=== PATIENT | female | born 1990 | race Caucasian/White ===

== ENCOUNTER 2019-10-11 14:00 | Emergency (ER) | payer BC ==
[~2019-10-11] VITALS: Ht 154.9 cm; Wt 80.9 kg
[2019-10-11] MEDS ORDERED: predniSONE 20 MG TABLET PO ONE (15:30)
[2019-10-11] MEDS ORDERED: ALBU2.5V5 NEB (15:39)
--- NOTE | 2019-10-11 15:39 | PHYS DOC ---
Past Medical History Past Medical History: Asthma Past Surgical History: No Surgical History Smoking Status: Current Every Day Smoker Alcohol Use: None Adult General Chief Complaint Chief Complaint: ASTHMA HPI HPI Patient is a 29 year old female who presents with dyspnea. Patient states she has a history of asthma, has had some increased wheezing over the last 2 days, after she exposed to some dust from [place] boxes at work. States she is trying to save her inhaler to use at work, as she does not have refills for this, however she been using her nebulizers at home with seem to help, but she is now out of them. States she has a prescription for her Symbicort however she has not been able to fill it, she will fill this tomorrow when her pharmacy opens. States no recent fever, no recent illness, no exposure to other ill persons. States she is just had concern over her asthma being a little worse recently Review of Systems Review of Systems Constitutional: Denies fever or chills [] HENT: Denies nasal congestion or sore throat [] Respiratory: Reports cough, denies shortness of breath, however does state her asthma feels like it is a little bit worse over the last couple days Cardiovascular: No additional information not addressed in HPI [] GI: Denies abdominal pain, nausea, vomiting, bloody stools or diarrhea [] : Denies dysuria or hematuria [] Musculoskeletal: Denies back pain or joint pain [] Integument: Denies rash or skin lesions [] Neurologic: Denies headache, focal weakness or sensory changes [] Endocrine: Denies polyuria or polydipsia [] All other systems were reviewed and found to be within normal limits, except as documented in this note. Allergies Allergies Allergies Coded Allergies Type Severity Reaction Last Updated Verified No Known Drug Allergies 10/11/19 No Physical Exam Physical Exam Constitutional: Well developed, well nourished, no acute distress, non-toxic appearance. [] HENT: Normocephalic, atraumatic, oropharynx moist, no oral exudates, nose normal. [] Cardiovascular:Heart rate regular rhythm, no murmur [] Lungs & Thorax: Faint wheezes noted to upper lobes, no wheezes noted to lower lobes. Patient conversational, able speak in multiple word sentences with no noted air hunger [] Abdomen: Bowel sounds normal, soft, no tenderness, no masses, no pulsatile masses. [] Skin: Warm, dry, no erythema, no rash. [] Extremities: No tenderness, no cyanosis, no clubbing, ROM intact, no edema. [] Neurologic: Alert and oriented X 3, normal motor function, normal sensory function, no focal deficits noted. [] Psychologic: Affect normal, judgement normal, mood normal. [] Current Patient Data Vital Signs Vital Signs Date Time Temp Pulse Resp B/P (MAP) Pulse Ox O2 Delivery O2 Flow Rate FiO2 10/11/19 14:54 98.5 100 18 146/88 (107) 96 Room Air 98.5 EKG EKG [] Radiology/Procedures Radiology/Procedures [] Course & Med Decision Making Course & Med Decision Making Pertinent Labs and Imaging studies reviewed. (See chart for details) [] Discussed plan with patient, with patient having cough, and patient working with other persons at work, and current covid situation, recommend patient to use her nebulizer at home, once her medication is refilled. States she feels g ood about this, will give a dose of steroids here. We will refill her nebulizers. Patient will restart her Symbicort tomorrow, understands importance of taking her daily preventative medication, and will use her rescue inhaler at work as needed. Patient agreeable to nebulizer treatment here at this time, O2 saturation noted [id number]%. No tachycardia noted. No noted air hunger. Dragon Disclaimer Dragon Disclaimer This electronic medical record was generated, in whole or in part, using a voice recognition dictation system. Departure Departure Impression: Primary Impression: Asthma exacerbation Disposition: HOME, SELF-CARE Condition: STABLE Patient Instructions: Asthma Attacks, Prevention, Asthma, Adult Additional Instructions: As we discussed, use your nebulizer when you get home. Also make sure you are able to fill your Singulair prescription tomorrow and take this as prescribed. Try to avoid the dust at work if possible. Follow-up with your primary care provider as needed Scripts Albuterol Sulfate (ALBUTEROL SULFATE NEB SOLN) 2.5 Mg/3 Ml Vial.neb 2.5 MG NEB PRN Q4HRS PRN for SHORTNESS OF BREATH, #25 EACH 0 Refills Prov: EVARISTO SILVA APRN 10/11/19 Problem Qualifiers Primary Impression: Asthma exacerbation Asthma severity: mild Asthma persistence: intermittent Qualified Codes: J45.21 - Mild intermittent asthma with (acute) exacerbation EVARISTO SILVA APRN Oct 11, 2019 15:39
[2019-10-11 15:47] VITALS: BP 151/94
== END 2019-10-11 15:57 | disposition home or self-care (01) ==
LOC: ER 14:00
DX: J45.21 Mild intermittent asthma with (acute) exacerbation (principal); R06.00 Dyspnea, unspecified; R05 Cough; J45.909 Unspecified asthma, uncomplicated; F17.200 Nicotine dependence, unspecified, uncomplicated
CPT/HCPCS: 99284; J7512